=== PATIENT | male | born 1985 | race Caucasian/White ===

== ENCOUNTER 2019-11-08 18:04 | Emergency (ER) | payer MEDICAID, OTHER ==
[~2019-11-08] VITALS: Ht 172.7 cm; Wt 136.4 kg
[~2019-11-08 18:04] MED LIST: ASPI-728 PO; CARV12 PO; FURO40 PO; LISI-660 PO; POTA-92 PO
[2019-11-08 19:51] VITALS: BP 127/90
== END 2019-11-08 19:55 | disposition home or self-care (01) ==
LOC: EMS 18:04
DX: G62.9 Polyneuropathy, unspecified (principal); I11.0 Hypertensive heart disease with heart failure; I50.9 Heart failure, unspecified; E11.9 Type 2 diabetes mellitus without complications; F14.90 Cocaine use, unspecified, uncomplicated

== ENCOUNTER 2024-05-05 11:52 | Emergency (ER) | payer MEDICAID, OTHER ==
[~2024-05-05] VITALS: Ht 172.7 cm; Wt 180.0 kg
[2024-05-05] MEDS ORDERED: METF-1211 PO (12:02)
[2024-05-05 12:05] VITALS: TEMP 98.1
[2024-05-05] MEDS: IBUPROFEN 600 MG TABLET PO ONE (13:59)
[2024-05-05] MEDS: PERTUSS(ACELL),DIPH,TET/PF 0.5 ML SYRINGE [ADULT] IM. ONE (14:03)
[2024-05-05] MEDS: BACITRACIN 28 GM OINTMENT TP ONE (14:38)
[2024-05-05] MEDS: CEPHALEXIN MONOHYDRATE 500 MG CAPSULE PO ONE (14:39)
[2024-05-05] MEDS ORDERED: BACI28.410 TP (14:45)
[2024-05-05] MEDS ORDERED: CEPH-558 PO (14:45)
[2024-05-05] MEDS: INSULIN REGULAR, HUMAN 100 UNITS/ML SQ ONE (14:59)
[2024-05-05 16:02] VITALS: BP 135/86; PULSE 97; RESP 20; O2SAT 98
[2024-05-07 07:31] LABS: GLUCOMETER DEV NAME(LOC) ER.7; GLUCOSE,POINT OF CARE 194 MG/DL (70-110)
== END 2024-05-05 16:08 | disposition home or self-care (01) ==
LOC: EMS 12:14
DX: S81.812A Laceration without foreign body, left lower leg, initial encounter (principal); E11.9 Type 2 diabetes mellitus without complications; I11.0 Hypertensive heart disease with heart failure; I42.9 Cardiomyopathy, unspecified; I50.9 Heart failure, unspecified; Z98.890 Other specified postprocedural states; W01.0XXA Fall on same level from slipping, tripping and stumbling without subsequent striking against object, initial encounter; Y93.01 Activity, walking, marching and hiking; Y92.89 Other specified places as the place of occurrence of the external cause; Y99.8 Other external cause status
CPT/HCPCS: 82962; 90471; 90715; 96372; 99284; J1815